=== PATIENT | male | born 1950 | race Caucasian/White ===

== ENCOUNTER 2022-11-04 09:37 | Day surgery (SDC) | payer MEDICARE, BC ==
[~2022-11-04 09:37] MED LIST: Acetaminophen 325 MG Tab PO SCH; Lactated Ringers 1,000 ML IV SCH; Lactated Ringers 1,000 ML ONE; Midazolam 1 MG/ML 2 ML SDV ONE; Morphine 8 MG, EPINEPHrine 0.3 MG, Cefuroxime 750 MG, Ketorolac 30 MG, Sodium Chloride ... PRN; Pregabalin 25 MG Cap PO SCH; Propofol 200 MG/20 ML SDV ONE; ceFAZolin 2 GM Vial ONE; fentaNYL 100 MCG/2 ML SDV ONE; oxyCODONE ER 10 MG TAB.ER PO SCH
[2022-11-04] MEDS ORDERED: Lidocaine 1%/Sod Bicarbonate in NS 8.4% 1 ML Syringe IDERM ONE (09:45)
[2022-11-04] MEDS ORDERED: Tranexamic Acid 1,000 MG/10 ML Vial ONE (10:25)
[2022-11-04] MEDS ORDERED: Vancomycin 1 GM SDV ONE (10:25)
[2022-11-04] MEDS ORDERED: Ropivacaine 0.5% 5 MG/ML 30 ML SDV ONE (10:37)
[2022-11-04] MEDS ORDERED: EPINEPHrine 1 MG/ML SDV ONE (10:37)
[2022-11-04] MEDS ORDERED: ePHEDrine 50 MG/ML SDV ONE (12:04)
[2022-11-04] MEDS ORDERED: fentaNYL 100 MCG/2 ML SDV IVPUSH PRN (12:25)
[2022-11-04] MEDS ORDERED: HYDROmorphone 0.5 MG/0.5 ML Syringe IVPUSH PRN (12:25)
[2022-11-04] MEDS ORDERED: Ondansetron 4 MG/2 ML SDV IVPUSH PRN (12:25)
[2022-11-04] MEDS ORDERED: Ondansetron 4 MG/2 ML SDV ONE (12:49)
[2022-11-04] MEDS ORDERED: Dexmedetomidine 200 MCG/2 ML SDV ONE (13:18)
[2022-11-04] MEDS ORDERED: oxyCODONE 5 MG Tab PO SCH (13:57)
== END 2022-11-04 17:45 | disposition home or self-care (01) ==
LOC: JD.SDS 09:37
PROVIDERS: ATTEND Orthopaedic Surgery
DX: M17.11 Unilateral primary osteoarthritis, right knee (principal); I10 Essential (primary) hypertension; E55.9 Vitamin D deficiency, unspecified; Z79.899 Other long term (current) drug therapy; Z87.891 Personal history of nicotine dependence; Z79.82 Long term (current) use of aspirin; Z98.890 Other specified postprocedural states
CPT/HCPCS: 0055T; 27447; 36415; 64447; 73560; 85730; 97110; 97116; 97161; A9270; C1713; C1776; J0171; J0690; J0697; J1885; J2250; J2270; J2405; J2704; J2795; J3010; J3370; J7120; 01402; 99100; J3490